=== PATIENT | male | born 1980 | race Caucasian/White ===

== ENCOUNTER 2019-05-17 08:40 | Emergency (ER) | payer OTHER, BC ==
--- NOTE | 2019-05-17 09:44 | ER Document Report ---
ED Medical Screen (RME) - General Stated Complaint: BLOOD PRESSURE ISSUE/HEADACHES Time Seen by Provider: 05/17/19 09:36 Notes: Patient is a 39-year-old male with a history of high blood pressure who presents emergency department with a chief complaint of chest pain and elevated blood pressure. Patient reports around 3 weeks ago his losartan was increased from 12.5 mg to 25 mg due to a elevated diastolic blood pressure. Patient reports he does take 25 mg of losartan daily with his last dose being at 630 this morning. Patient reports on is developing some left-sided chest pain that feels like a burning sensation. Patient reports this does radiate into his back and is constant. - Related Data Allergies/Adverse Reactions: lisinopril Allergy (Intermediate, Verified 05/17/19 09:37) brassy cough omeprazole Adverse Reaction (Severe, Verified 05/17/19 09:37) Impotence Physical Exam - Vital signs Vitals: Temp Pulse Resp BP Pulse Ox 98.3 F 83 16 146/92 H 96 05/17/19 08:57 05/17/19 08:57 05/17/19 08:57 05/17/19 08:57 05/17/19 08:57 - Cardiovascular Rhythm: Regular Heart sounds: Normal auscultation, S1 appreciated, S2 appreciated Notes: No reproducible chest pain noted on the left side with palpation. Course - Re-evaluation Re-evalutation: 05/17/19 09:44 We will obtain a cardiac work-up as the patient is having chest pain. Patient is not significantly hypertensive in triage at this time. Patient nontoxic- appearing. Patient to be reevaluated by provider when placed in a private room. I have greeted and performed a rapid initial assessment of this patient. A comprehensive ED assessment and evaluation of the patient, analysis of test results and completion of the medical decision making process will be conducted by additional ED providers. - Vital Signs Vital signs: Temp Pulse Resp BP Pulse Ox 98.3 F 83 16 146/92 H 96 05/17/19 08:57 05/17/19 08:57 05/17/19 08:57 05/17/19 08:57 05/17/19 08:57
[2019-05-17 10:27] LABS: ABSOLUTE EOSINOPHILS # (AUTO) 0.1 10^3/uL (0.0-0.6); ABSOLUTE LYMPHOCYTES (AUTO) 1.3 10^3/uL (0.5-4.7); ABSOLUTE MONOCYTES (AUTO) 0.5 10^3/uL (0.1-1.4); ABSOLUTE NEUT (AUTO) 3.4 10^3/uL (1.7-8.2); BASOPHILS % (AUTO) 0.8 % (0-2); EOSINOPHILS % (AUTO) 2.3 % (0-6); HEMATOCRIT 45.7 % (37.9-51.0); HEMOGLOBIN 16.3 g/dL (13.5-17.0); LYMPHOCYTES % (AUTO) 24.1 % (13-45); MEAN CORPUSCULAR HEMOGLOBIN 30.5 pg (27.0-33.4); MEAN CORPUSCULAR HGB CONC 35.7 g/dL (32.0-36.0); MEAN CORPUSCULAR VOLUME 85 fl (80-97); MONOCYTES % (AUTO) 8.6 % (3-13); PLATELET COUNT 212 10^3/uL (150-450); RED BLOOD COUNT 5.36 10^6/uL (4.35-5.55); RED CELL DISTRIBUTION WIDTH 13.4 % (11.5-14.0); SEGMENTED NEUTROPHILS % (AUTO) 64.2 % (42-78); TOTAL CELLS COUNTED % (AUTO) 100 %; WHITE BLOOD COUNT 5.4 10^3/uL (4.0-10.5)
[2019-05-17 10:48] LABS: ALBUMIN 4.5 g/dL (3.5-5.0); ALKALINE PHOSPHATASE 81 U/L (38-126); ANION GAP 6 (5-19); ASPARTATE AMINO TRANSFERASE 31 U/L (17-59); BILIRUBIN,TOTAL 0.5 mg/dL (0.2-1.3); BLOOD UREA NITROGEN 13 mg/dL (7-20); CALCIUM 9.2 mg/dL (8.4-10.2); CARBON DIOXIDE 31 mmol/L (22-30); CHLORIDE 103 mmol/L (98-107); GLUCOSE 96 mg/dL (75-110); POTASSIUM 4.1 mmol/L (3.6-5.0); TOTAL PROTEIN 7.1 g/dL (6.3-8.2)
--- NOTE | 2019-05-17 11:09 | RADIOLOGY REPORT (SQ) ---
EXAM DESCRIPTION: CHEST 2 VIEWS COMPLETED DATE/TIME: 05/17/2019 10:52 am REASON FOR STUDY: Left sided chest pain COMPARISON: None. EXAM PARAMETERS: NUMBER OF VIEWS: two views TECHNIQUE: Digital Frontal and Lateral radiographic views of the chest acquired. RADIATION DOSE: NA LIMITATIONS: none FINDINGS: LUNGS AND PLEURA: No opacities, masses or pneumothorax. No pleural effusion. MEDIASTINUM AND HILAR STRUCTURES: No masses or contour abnormalities. HEART AND VASCULAR STRUCTURES: Heart normal size. No evidence for failure. BONES: No acute findings. HARDWARE: None in the chest. OTHER: No other significant finding. IMPRESSION: NO ACUTE RADIOGRAPHIC FINDING IN THE CHEST. TECHNICAL DOCUMENTATION: JOB ID: [id number] 2010 [employer]- All Rights Reserved Reading location - IP/workstation name: [email or web address]
--- NOTE | 2019-05-17 11:31 | EKG REPORT ---
SEVERITY:- NORMAL ECG - SINUS RHYTHM : Confirmed by: Case Patel 17-May-2019 11:31:13
--- NOTE | 2019-05-17 13:15 | ER Document Report ---
ED Blood Pressure Problem - General Chief Complaint: High Blood Pressure Stated Complaint: BLOOD PRESSURE ISSUE/HEADACHES Time Seen by Provider: 05/17/19 09:36 Mode of Arrival: Ambulatory Information source: Patient TRAVEL OUTSIDE OF THE [place] IN LAST 30 DAYS: No - HPI Notes: Patient presents with concerns about his diastolic blood pressure as well as so me burning left-sided chest pain. He states that this pain is been present for approximately 5 days. It is been intermittent. It is burning in description. It does not radiate. Nothing makes it better or worse. It is on the left sternal border. Patient also states he is noticed that his "lower number" of his blood pressure has been elevated for approximately 2 weeks. He states that his primary care physician recently increased his blood pressure medicine but it has not change the diastolic numbers. - Related Data Allergies/Adverse Reactions: lisinopril Allergy (Intermediate, Verified 05/17/19 09:37) brassy cough omeprazole Adverse Reaction (Severe, Verified 05/17/19 09:37) Impotence Home Medications: losartan, trazadone, pantoprazole, flonase, loratadine, melatonin, voltaren gel Past Medical History - General Information source: Patient - Social History Smoking Status: Former Smoker Chew tobacco use (# tins/day): No Frequency of alcohol use: Occasional Drug Abuse: Marijuana Family History: Reviewed & Not Pertinent Patient has suicidal ideation: No Patient has homicidal ideation: No Review of Systems - Review of Systems Constitutional: denies: Chills, Fever Cardiovascular: denies: Chest pain, Palpitations Respiratory: denies: Cough, Short of breath -: Yes All other systems reviewed and negative Physical Exam - Vital signs Vitals: Temp Pulse Resp BP Pulse Ox 98.3 F 83 16 146/92 H 96 05/17/19 08:57 05/17/19 08:57 05/17/19 08:57 05/17/19 08:57 05/17/19 08:57 Interpretation: Hypertensive - General General appearance: Appears well, Alert - HEENT Head: Normocephalic, Atraumatic Eyes: Normal Pupils: PERRL - Respiratory Respiratory status: No respiratory distress Chest status: Nontender Breath sounds: Normal Chest palpation: Normal - Cardiovascular Rhythm: Regular Heart sounds: Normal auscultation Murmur: No - Abdominal Inspection: Normal Distension: No distension Bowel sounds: Normal Tenderness: Nontender Organomegaly: No organomegaly - Back Back: Normal, Nontender - Extremities General upper extremity: Normal inspection, Nontender, Normal color, Normal ROM, Normal temperature General lower extremity: Normal inspection, Nontender, Normal color, Normal ROM, Normal temperature, Normal weight bearing. No: Neymar's sign - Neurological Neuro grossly intact: Yes Cognition: Normal Orientation: AAOx4 Levasy Coma Scale Eye Opening: Spontaneous Levasy Coma Scale Verbal: Oriented Levasy Coma Scale Motor: Obeys Commands Erik Coma Scale Total: 15 Speech: Normal Motor strength normal: LUE, RUE, LLE, RLE Sensory: Normal - Psychological Associated symptoms: Normal affect, Normal mood - Skin Skin Temperature: Warm Skin Moisture: Dry Skin Color: Normal Course - Vital Signs Vital signs: Temp Pulse Resp BP Pulse Ox 98.3 F 83 18 129/95 H 98 05/17/19 08:57 05/17/19 08:57 05/17/19 12:31 05/17/19 12:31 05/17/19 12:31 - Laboratory Result Diagrams: 05/17/19 10:02 05/17/19 10:02 Laboratory results interpreted by me: 05/17/19 10:02 Carbon Dioxide 31 H - Diagnostic Test Radiology reviewed: Image reviewed, Reports reviewed - EKG Interpretation by [facility] EKG shows normal: Sinus rhythm Rate: Normal - 62 Rhythm: NSR [employer]/QRS: No: Right axis deviation, Left axis deviation Discharge - Discharge Clinical Impression: Chest pain Qualifiers: Chest pain type: unspecified Qualified Code(s): R07.9 - Chest pain, unspecified Condition: Stable Disposition: HOME, SELF-CARE Instructions: High Blood Pressure ([facility]), Chest Pain of Unclear Cause ([facility]) Additional Instructions: Please follow-up with your family physician in the next 2 to 3 days. Prescriptions: Hydrochlorothiazide 12.5 mg PO QAM 30 Days #30 tablet Forms: Return to Work
[2019-05-17 13:30] VITALS: BP 138/100
== END 2019-05-17 13:32 | disposition home or self-care (01) ==
LOC: ER 08:40
DX: R07.9 Chest pain, unspecified (principal); R03.0 Elevated blood-pressure reading, without diagnosis of hypertension
CPT/HCPCS: 36415; 71046; 80053; 84484; 85025; 93005; 93010; 99283